=== PATIENT | female | born 1975 | race Caucasian/White ===

== ENCOUNTER → 2024-04-26 | Outpatient (CLI) | payer BC, SELFPAY ==
--- NOTE | 2024-04-26 15:08 | XR_ITS ---
Examination: Lumbar spine 3 views Technique one AP lateral coned lateral lower lumbar spine 3 views Exam date and time: April 26, 2024 at 1537 hours Comparison December 07, 2017 INDICATIONS: Low back pain beginning 3 months ago. FINDINGS: Interval advanced degenerative disc disease L4-L5 No lumbar fracture No spondylolisthesis Adequate alignment lumbar vertebral bodies on the lateral view IMPRESSION: Interval advanced degenerative disc disease L4-L5
== END | disposition home or self-care (01) ==
PROVIDERS: PCP Chiropractor; Referring Provider Chiropractor; Visit Provider Chiropractor
DX: M51.369 Other intervertebral disc degeneration, lumbar region without mention of lumbar back pain or lower extremity pain (principal)
CPT/HCPCS: 72100

== ENCOUNTER → 2024-08-22 | Outpatient (CLI) | payer BC, SELFPAY ==
--- NOTE | 2024-08-22 16:45 | XR_ITS ---
Examination: Abdomen 2 views TECHNIQUE: AP supine AP upright abdomen 2 views Exam date and time: May 25, 2024 at 1654 hours INDICATIONS: Abdominal pain beginning 2 days ago. FINDINGS: Moderate stool throughout the colon. No obstruction. No free air. No abnormal calcific densities. IMPRESSION: Moderate stool throughout the colon
[2024-08-22 17:01] LABS: Collection Type, Urine Clean Catch
[2024-08-22 17:32] LABS: Basophils # (Auto) 0.1 Thou/mm3 (0.0-0.2); Basophils % (Auto) 1 % (0-2.5); Eosinophils # (Auto) 1.9 Thou/mm3 (0.0-0.5); Eosinophils % (Auto) 19 % (0-10); Hematocrit 41.4 % (36.0-46.0); Immature Granulocytes % (Auto) 0 % (0-0); Immature Granulocytes Auto 0.03 Thou/mm3 (0.00-0.00); Lymphocytes # (Auto) 2.5 Thou/mm3 (1.0-4.8); Lymphocytes % (Auto) 26 % (10-50); Mean Corpuscular HGB Conc 33.8 g/dl (31.0-37.0); Mean Corpuscular Hemoglobin 31.3 pg (25.0-35.0); Mean Corpuscular Volume 93 fL (80-100); Monocytes # (Auto) 0.6 Thou/mm3 (0.0-0.8); Monocytes % (Auto) 7 % (0-12); Neutrophils # (Auto) 4.5 Thou/mm3 (1.8-7.7); Neutrophils % (Auto) 47 % (37-80); Nucleated Red Blood Cell % 0 /100 WBC (0); Platelet Count 284 Thou/mm3 (140-440); RDW Standard Deviation 39.6 fL (36.4-46.3); Red Blood Count 4.47 Miln/mm3 (4.00-5.20); White Blood Count 9.6 Thou/mm3 (3.6-11.0)
[2024-08-22 17:53] LABS: Bacteria,Urine 1+; Bilirubin,Urine Negative (Negative); Blood,Urine Negative (Negative); Clarity,Urine Clear (Clear/Hazy); Color,Urine Lt-Yellow (Lt Yel-Yel); Glucose, Urine Negative (Negative); Ketones,Urine Negative (Negative); Leukocyte Esterase,Urine Positive (Negative); Nitrite,Urine Negative (Negative); Protein,Urine Negative (Neg - Trace); RBC,Urine < 1 /hpf (0-3); Squamous Epithelial Cell,Urine 2 /hpf (0-5); Urobilinogen,Urine Negative mg/dL (0.0-1.0); WBC,Urine 4 /hpf (0-5)
[2024-08-22 17:58] LABS: Culture Indicated,Urine Yes
== END | disposition home or self-care (01) ==
LOC: CDIM 16:41 → COPL 16:43
PROVIDERS: PCP Physician Assistant; Referring Provider Physician Assistant; Visit Provider Radiology Diagnostic Radiology
DX: K59.00 Constipation, unspecified (principal); R10.812 Left upper quadrant abdominal tenderness
CPT/HCPCS: 36415; 74019; 81001; 85025; 87086

== ENCOUNTER 2024-08-26 08:31 | Outpatient (AMB) | payer BC, SELFPAY ==
[2024-08-26 08:41] VITALS: BP 103/70; PULSE 90; RESP 18; TEMP 36.2; O2SAT 97; BMI 24.3
--- NOTE | 2024-08-26 08:41 | GYNCLNT_ITS ---
Vital Signs 08/26/24 08:41 Height 1.75 m Height Method Stated Weight 74.559 kg Weight Measurement Method Standing Scale BMI 24.3 BP 103/70 Blood Pressure Source Automatic Cuff Blood Pressure Location Left Upper Arm Position Sitting Respiration 18 Pulse 90 Pulse Source Monitor Temp 97.2 F Temp Source Oral Pulse Oximetry (%) 97 Oxygen Delivery Method Room Air Allergies/Home Meds Allergies & Medications Allergies naproxen Allergy (Intermediate, Verified 08/26/24 08:44) FACIAL SWELLING Medication Reconciliation dupilumab 300 mg/2 mL subcutaneous pen injector (Dupixent) 300 mg subcut QWEEK 11/11/22 [History Confirmed 08/26/24] sertraline 25 mg tablet 25 mg PO DAILY 11/11/22 [History Confirmed 08/26/24] Intake Visit Data Collection New Patient or Established: Established Patient (seen at [facility] within 3 years) Reason for Visit:: Discuss hormones and marck-menopause Seen by Clinical Staff ONLY (RN/MA): No Routing Clerk Required: No Do You Feel Safe at Home: Yes Authorities Contacted: N/A PCP or OBGYN visit in last 3 months: Yes Hx Now: No Are you currently on any form of Control: No Last menstrual period: 08/07/24 Pain Present Currently: No Pain Scale Used: Blum-Hernandez/Numerical Pain scale:: 0 Smoking Status Smoking Status: Never smoker Practice Support Specialist history Practice Support Specialist History Menstrual regularity: regular Flow: normal Monthly: Yes How many days does period last: 5 Age at menarche: 12 Menopausal: No Currently sexually active: Yes Additional comments: Pt has boderline thyroid No meds Questionnaires Covid-19 Vaccine Questionnaire Has patient been vacinated for Covid-19 Have you been vacinated for Covid-19: Yes PHQ-9 PHQ-2 Over the last 2 weeks, how often have you been bothered by any of the following problems? 1. Little interest or pleasure in doing things: not at all 2. Feeling down, depressed, or hopeless: not at all Total score: 0 PHQ-9 3. Trouble falling or staying asleep, or sleeping too much: Not at all 4. Feeling tired or having little energy: Not at all 5. Poor appetite or overeating: Not at all 6. Feeling bad about yourself - or that you are a failure or have let yourself or your family down: Not at all 7. Trouble concentrating on things, such as reading the newspaper or watching television: Not at all 8. Moving or speaking so slowly that other people could have noticed? - Or the opposite - being so fidgety or restless that you have been moving around a lot more than usual: not at all 9. Thoughts that you would be better off or of hurting yourself in some way: Not at all Total score: 0 If you checked off any problems, how difficult have these problems made it for you to do your work, take care of things at home, or get along with other people?: not difficult at all Source: Developed by Drs. Thong Greene, Debi Ramos, Yoni Blackman and colleagues, with an educational tyrone from [employer]. Depression screen completed yes Social History Living Situation History Marital Status: Lives With: Family Housing: House Housing Other:: Has a 16 y/o girl ,19 y/o boy. 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 [employer] going to teach Tobacco History Smoking Status: Never smoker Second Hand Smoke Exposure: No Alcohol History Alcohol Intake: Current Domestic Abuse History Do You Feel Safe at Home: Yes Past Medical History Past Medical History Have you ever been diagnosed with any of the following: Neurological Problems Seizures: No Cardiology Problems Congestive Heart Failure: No Respiratory Problems Chronic Obstructive Pulmonary Disease (COPD): No Asthma: Yes Endocrine Problems Diabetes Mellitus Type 2: No Hypothyroidism: Yes (Borderline) Psychologic Problems Anxiety: Yes Other Problems Hospitalization: Yes (For childbirth x 2) Blood Transfusions: No Anesthesia Reactions: No Chicken Pox: Yes Measles: No Mumps: No Cancer: No Surgical History Additional Surgical History: Sinus surgery, x 2 in past. Spouse with vasectomy History of Present Illness HPI Narrative The patient is a 48 y/o , very pleasant who presents to discuss hormones and the marck-menopause. She states her memory is bad and that she has brain fog. She states her hair is thinning. She has regular cycles and so far, no hot flashes or night sweats.Her cycles are actually a little heavier than they were in the past. Her has had a vasectomy for contraception. Her physician is Dr. Bob Cope and she performed an annual exam on the patient last year. She is also reporting some left flank pain. Review of Systems Review of Systems Narrative Review of Systems: Cycles are regular, a little heavier. +Brain fog, decreased memory. + hair thinning. No hot flashes or night sweats. No recent labs or US. Last pap 2023 a nd WNL per patient Exam General General Appearance: alert, in no apparent distress, comfortable, cooperative, healthy appearing, well developed and well groomed Neck Neck exam: Present normal inspection, full ROM and trachea midline Chest Chest inspection: Present normal inspection and symmetric chest wall rise Resp Respiratory exam: Present normal lung sounds bilaterally Card Cardiovascular exam: Present regular rate, normal rhythm and normal heart sounds Abdominal Abdominal exam: Present soft and normal bowel sounds Extremities Extremities exam: Present normal inspection and full ROM Psych Psychiatric exam: Present normal affect and normal mood Skin Skin exam: Present warm, dry, intact and normal color Office Procedures OB Clinic LOC & Office Proc's Nursing/Assessment Patient Status: Established Patient OB Clinic Nursing Assessment: BP Monitoring, Medication Reconciliation, Update PMH in EMR and Vital Signs OB Clinic Coordination of Care: Consent,records obtained, informed consent, Education Simp Pt/Fam, Lab and Imaging orders and Staff clarify orders Established Patient Charge Established Patient Point Assignment: 90 Established Patient Point Charge: EP Level 3 (80-115) Assessment & Plan Diagnosis / Problem List (1) Flank pain, acute: Status: Acute Assessment and Plan: Check stat pelvic ultrasound and abdominal ultrasound (2) DUB (dysfunctional uterine bleeding): Status: Acute Assessment and Plan: Check pelvic ultrasound and abdominal ultrasound (3) Menorrhagia, premenopausal: Status: Acute Assessment and Plan: All thyroid labs and hormones and pelvic ultrasound ordered (4) Urinary, incontinence, stress female: Status: Acute Assessment and Plan: Referred to Dr. Cowan for possible sling
== END 2024-08-26 09:20 | disposition home or self-care (01) ==
LOC: HODSOBC 08:31
PROVIDERS: Supervising Provider Obstetrics & Gynecology; Visit Provider Obstetrics & Gynecology
DX: N92.4 Excessive bleeding in the premenopausal period (principal); N93.8 Other specified abnormal uterine and vaginal bleeding; N39.3 Stress incontinence (female) (male)
CPT/HCPCS: 99213; G0463

== ENCOUNTER → 2024-08-26 | Outpatient (CLI) | payer BC, SELFPAY ==
--- NOTE | 2024-08-26 10:15 | XR_ITS ---
Examination: Pelvic ultrasound, transabdominal, complete Technique: Transabdominal ultrasound of the pelvis performed using grayscale imaging Date and time of exam: August 26, 2024 at 1037 hours INDICATIONS: Irregular heavy menses 6 months FINDINGS: Uterus 8.6 cm endometrial stripe 0.3 cm No solid uterine mass Ovaries obscured by bowel gas IMPRESSION: No solid uterine mass
== END | disposition home or self-care (01) ==
LOC: CDIM 09:55
PROVIDERS: PCP Family Medicine; Referring Provider Obstetrics & Gynecology; Visit Provider Obstetrics & Gynecology
DX: N92.4 Excessive bleeding in the premenopausal period (principal); R10.9 Unspecified abdominal pain
CPT/HCPCS: 76856

== ENCOUNTER → 2024-09-16 | Outpatient (CLI) | payer BC, SELFPAY ==
--- NOTE | 2024-09-16 09:15 | XR_ITS ---
Examination: Abdomen sonogram, complete Date and time of exam: September 16, 2024 0842 hours INDICATIONS: Left upper abdominal pain beginning one week ago. Technique: Multiple real-time grayscale transabdominal sonographic images of the abdomen have been obtained. Findings: Normal gallbladder Normal common bile duct 0.2 cm Pancreatic head 2.1 cm Aorta not enlarged Liver 14.8 cm no focal liver lesions Normal hepatopedal portal venous flow Patent IVC Right kidney 9.9 cm renal cortex 1.7 cm Left kidney 10.7 cm cortex 2.1 cm Minimal right hydronephrosis Spleen 10.9 cm IMPRESSION: Normal gallbladder Minimal right hydronephrosis
== END | disposition home or self-care (01) ==
LOC: CDIM 08:31
PROVIDERS: PCP Family Medicine; Referring Provider Physician Assistant; Visit Provider Physician Assistant
DX: N13.30 Unspecified hydronephrosis (principal)
CPT/HCPCS: 76700

== ENCOUNTER → 2024-12-08 | Outpatient (CLI) | payer BC, SELFPAY ==
--- NOTE | 2024-12-08 08:30 | XR_ITS ---
Examination: CT abdomen and pelvis without contrast. Coronal 3-D reconstructions. Sagittal 2-D reconstructions. Date and time of exam:December 08, 2024 0859 hours, comparison September 14, 2013 INDICATIONS: Onset left-sided flank pain beginning one month ago, history left hydronephrosis left ureteral calculus September 14, 2013 CTDI: vol (mGy): 10.3 DLP: (mGycm): 565 Technique: Axial images of the abdomen have been obtained, 3 mm slice thickness Intravenous contrast material has not been administered. Low dose protocols were performed. One or more of the following dose reduction techniques were used; automated exposure control, adjustment of the mA and/or KV according to patient size, use of iterative reconstruction technique. Findings: No focal liver or splenic lesions Contracted gallbladder No pancreatic or adrenal mass. Mild renal scar formation No renal or ureteral calculi, no hydronephrosis Aorta normal size No bowel obstruction Trace free fluid in the pelvis Retroverted uterus Moderate disc narrowing L4-L5 Normal appendix IMPRESSION: Mild renal parenchymal scar formation. No renal or ureteral calculi, no hydronephrosis Normal appendix
[2024-12-08 08:52] LABS: HCG Qualitative,Urine Negative
== END | disposition home or self-care (01) ==
LOC: CCTX 08:08
PROVIDERS: PCP Family Medicine; Referring Provider Physician Assistant; Visit Provider Physician Assistant
DX: N28.89 Other specified disorders of kidney and ureter (principal)
CPT/HCPCS: 74176; 81025

== ENCOUNTER → 2025-01-19 | Outpatient (CLI) | payer BC, SELFPAY ==
[2025-01-19 15:27] LABS: Basophils # (Auto) 0.1 Thou/mm3 (0.0-0.2); Basophils % (Auto) 1 % (0-2.5); Eosinophils # (Auto) 1.1 Thou/mm3 (0.0-0.5); Eosinophils % (Auto) 13 % (0-10); Hematocrit 40.6 % (36.0-46.0); Hemoglobin 13.4 g/dL (12.0-16.0); Immature Granulocytes Auto 0.02 Thou/mm3 (0.00-0.00); Lymphocytes # (Auto) 1.9 Thou/mm3 (1.0-4.8); Lymphocytes % (Auto) 24 % (10-50); Mean Corpuscular HGB Conc 33.0 g/dl (31.0-37.0); Mean Corpuscular Hemoglobin 30.7 pg (25.0-35.0); Mean Corpuscular Volume 93 fL (80-100); Monocytes # (Auto) 0.5 Thou/mm3 (0.0-0.8); Monocytes % (Auto) 6 % (0-12); Neutrophils # (Auto) 4.4 Thou/mm3 (1.8-7.7); Neutrophils % (Auto) 55 % (37-80); Nucleated Red Blood Cell # 0.00 Thou/mm3 (0.00-0.00); Nucleated Red Blood Cell % 0 /100 WBC (0); Platelet Count 303 Thou/mm3 (140-440); RDW Standard Deviation 40.7 fL (36.4-46.3); Red Blood Count 4.37 Miln/mm3 (4.00-5.20); White Blood Count 7.9 Thou/mm3 (3.6-11.0)
[2025-01-19 15:37] LABS: Glucose Estimated Average 100 mg/dL (80-131); Hemoglobin A1C 5.1 % Hgb (4.8-6.0)
[2025-01-19 15:44] LABS: INR 0.9 (0.9-1.3); Partial Thromboplastin Time 29.4 Seconds (22.0-36.0); Prothrombin Time 9.9 Seconds (9.0-12.2)
[2025-01-19 15:53] LABS: Alanine Aminotransferase 20 U/L (10-49); Albumin, Serum 4.4 gm/dL (3.5-5.0); Albumin/Globulin Ratio 1.8 (1.2-2.2); Alkaline Phosphatase 72 U/L (46-116); Anion Gap 10 (7-16); Aspartate Amino Transferase 25 U/L (0-34); BUN/Creatinine Ratio 17 Ratio (12-20); Bilirubin,Total 0.3 mg/dL (0.3-1.2); Blood Urea Nitrogen 12 mg/dL (9-23); Calcium 9.0 mg/dL (8.3-10.6); Calcium (Corrected) 9.0 mg/dL (8.5-10.1); Carbon Dioxide 26.9 mMol/L (20.0-31.0); Chloride 104 mMol/L (98-107); Creatinine (Component) 0.7 mg/dL (0.6-1.3); Free T4 (Free Thyroxine) 1.18 ng/dL (0.89-1.76); Globulin 2.4 gm/dL (2.3-3.5); Glucose 84 mg/dL (74-106); Osmolality,Calculated 279 (275-295); Potassium 4.2 mMol/L (3.4-5.1); Sodium 141 mMol/L (136-145); Thyroid Stimulating Hormone 0.37 uIU/mL (0.55-4.78); Total Protein 6.8 gm/dL (5.7-8.2); eGFR > 60 See Note
== END | disposition home or self-care (01) ==
LOC: COPL 14:16
PROVIDERS: PCP Nurse Practitioner Family; Referring Provider Nurse Practitioner Family; Visit Provider Nurse Practitioner Family
DX: R23.3 Spontaneous ecchymoses (principal); E03.9 Hypothyroidism, unspecified
CPT/HCPCS: 36415; 80053; 83036; 84439; 84443; 85025; 85610; 85730